=== PATIENT | female | born 1975 | race Caucasian/White ===

== ENCOUNTER 2017-03-09 12:27 | Emergency (ER) | payer MEDICAID ==
[~2017-03-09] VITALS: Ht 172.7 cm; Wt 65.8 kg
[2017-03-09 12:27] VITALS: BP 100/71
== END 2017-03-09 13:15 | disposition home or self-care (01) ==
LOC: ER 12:29
DX: R21 Rash and other nonspecific skin eruption (principal); L50.9 Urticaria, unspecified
CPT/HCPCS: 99283; A4606; Z7610